=== PATIENT | female | born 1975 | race Two or more races ===

== ENCOUNTER 2019-01-16 08:00 | Inpatient (IN) | payer OTHER ==
[~2019-01-16] VITALS: Ht 167.6 cm; Wt 71.9 kg
[2019-01-16] VITALS (36 sets, daily range): BP systolic 97–135; BP diastolic 55–88; PULSE 60–90; RESP 16–18; Ht 167.6 cm; Wt 71.9 kg
[~2019-01-16 08:00] MED LIST: ACETAMINOPHEN 500 MG TAB PO ONE; CEFAZOLIN 2 GM/50 ML (PMX) 50 ML IVPB ONE; DESFLURANE 15 MIN ONE; GLYCOPYRROLATE 0.4 MG INJ ONE; LIDOCAINE 2% (SDV) 5 ML INJ ONE; SOD CHLORIDE 0.9% 1,000 ML IV ONE; SUCCINYLCHOLINE CHLORIDE 100 MG/5 ML SYG IV ONE
[2019-01-16] MEDS ORDERED: PROPOFOL 40 ML ONE (08:19)
[2019-01-16] MEDS ORDERED: CEFAZOLIN 1 GM INJ ONE (08:20)
[2019-01-16] MEDS ORDERED: FAMOTIDINE 20 MG INJ ONE (08:20)
[2019-01-16] MEDS ORDERED: MIDAZOLAM 1 MG/ML 2 ML INJ ONE (08:20)
[2019-01-16] MEDS ORDERED: FENTAnyl 50 MCG/ML VIAL ONE (08:20)
[2019-01-16] MEDS ORDERED: ONDANSETRON 4 MG INJ ONE (08:20)
[2019-01-16] MEDS ORDERED: ROCURONIUM 50 MG INJ ONE (08:20)
[2019-01-16] MEDS ORDERED: morphine (1 MG/ML) 10ML SYRINGE IV PRN ×2 (08:30)
[2019-01-16] MEDS ORDERED: HYDROmorphONE 1 MG/5 ML IV SYRINGE IV PRN ×3 (08:30)
[2019-01-16] MEDS ORDERED: ONDANSETRON 4 MG INJ IV PRN ×2 (08:30→12:00)
[2019-01-16] MEDS ORDERED: OXYCODONE/ACETAMINOPHEN (5/325) TAB PO PRN ×2 (08:30)
[2019-01-16] MEDS ORDERED: FENTAnyl 50 MCG/ML VIAL IV PRN ×2 (08:30)
[2019-01-16] MEDS ORDERED: MEPERIDINE 25 MG INJ IV PRN (08:30)
[2019-01-16] MEDS ORDERED: LABETALOL HCL 20MG INJ IV PRN (08:30)
[2019-01-16] MEDS ORDERED: ALBUTEROL 0.083% (NEB) 2.5 MG/3 ML AMP HHN PRN (08:30)
[2019-01-16] MEDS ORDERED: DIPHENHYDRAMINE 50 MG INJ IV PRN (08:30)
[2019-01-16] MEDS ORDERED: THROMBIN (BOVINE) 5,000 UNIT VIAL TP ONE (09:11)
[2019-01-16] MEDS ORDERED: SURGIFOAM POWDER 1 GM KIT ONE (09:18)
--- NOTE | 2019-01-16 09:23 | PREAC ---
Date/Time of Note Date/Time of Note DATE: 01/16/19 TIME: 09:21 Anesthesia Eval and Record Evaluation Time Pre-Procedure Interview DATE: 01/16/19 TIME: 09:21 Age 43 Sex female NPO: 8 hrs Preoperative diagnosis R thyroid nodule Planned procedure R thyroid lobectomy possible total thyroidectomy Past Medical History Past Medical History: None Surgery & Anesthesia Issues No known issue Meds Anticoagulation: No Beta Lion within 24 hr: No Reason Beta Lion not given: Pt. not on B-Lion No Active Prescriptions or Reported Meds Current Medications Sodium Chloride 1,000 ml @ 75 mls/hr [id number] ONCE IV ; Start 01/16/19 at 07:00; Stop 01/16/19 at 20:19 Morphine Sulfate (morphine (REC)) 2 mg PACU ORDER PRN IV MILD PAIN 1-3; Start 01/16/19 at 08:30; Stop 01/16/19 at 16:00 Morphine Sulfate (morphine (REC)) 4 mg PACU ORDER PRN IV MOD PAIN 4-6; Start 01/16/19 at 08:30; Stop 01/16/19 at 16:00 Hydromorphone HCl (Dilaudid) 0.2 mg PACU PRN IV MILD PAIN 1-3; Start 01/16/19 at 08:30; Stop 01/16/19 at 16:00 Hydromorphone HCl (Dilaudid) 0.4 mg PACU PRN IV MOD PAIN 4-6; Start 01/16/19 at 08:30; Stop 01/16/19 at 16:00 Hydromorphone HCl (Dilaudid) 0.6 mg PACU PRN IV SEVERE PAIN 7-10; Start 01/16/19 at 08:30; Stop 01/16/19 at 16:00 Fentanyl (Sublimaze) 25 mcg PACU ORDER PRN IV MILD PAIN 1-3; Start 01/16/19 at 08:30; Stop 01/16/19 at 16:00 Fentanyl (Sublimaze) 50 mcg PACU ORDER PRN IV MOD PAIN 4-6; Start 01/16/19 at 08:30; Stop 01/16/19 at 16:00 Oxycodone/ Acetaminophen (Percocet (5/ 325)) 1 tab PACU ORDER PRN PO .PAIN 1-5; Start 01/16/19 at 08:30; Stop 01/16/19 at 16:00 Oxycodone/ Acetaminophen (Percocet (5/ 325)) 2 tab PACU ORDER PRN PO .PAIN 6-10; Start 01/16/19 at 08:30; Stop 01/16/19 at 16:00 Ondansetron HCl (Zofran Inj) 4 mg PACU ORDER PRN IV NAUSEA/VOMITING; Start 01/16/19 at 08:30; Stop 01/16/19 at 16:00 Labetalol HCl (Labetalol) 5 mg PACU ORDER PRN IV HIGH BLOOD PRESSURE; Start 01/16/19 at 08:30 Albuterol (Proventil 0.083% (Neb)) 2.5 mg PACU ORDER PRN HHN .WHEEZING; Start 01/16/19 at 08:30; Stop 01/16/19 at 16:00 Meperidine HCl (Demerol) 25 mg PACU ORDER PRN IV .RIGORS; Start 01/16/19 at 08:30; Stop 01/16/19 at 16:00 Diphenhydramine HCl (Benadryl) 25 mg PACU ORDER PRN IV .PRURITUS; Start 01/16/19 at 08:30 Meds reviewed: Yes Allergies Coded Allergies: nickel (Verified Allergy, Unknown, RASH ITCHING, 01/16/19) Allergies Reviewed: Yes Labs/Studies Labs Reviewed: Reviewed by anesthesiologist test: Negative Pre-procedure Exam Last vitals Vital Signs Date Temp Pulse Resp B/P (MAP) Pulse Ox O2 O2 Flow FiO2 Time Delivery Rate 01/16/19 97.7 84 18 122/62 100 Room Air 09:09 (82) Airway: Adequate mouth opening, Adequate thyromental dist Mallampati: Mallampati II Teeth: Normal Lung: Normal Heart: Normal ASA Physical Status ASA physical status: 1 Emergency: None Planned Anesthetic General/MAC: ETT Pre-operative Attestations Prior to commencing anesthesia and surgery, the patient was re-evaluated, there was verification of: *The patient's identity *The results of appropriate recent lab work and preoperative vital signs *The above evaluation not changing prior to induction *Anesthetic plan, risk benefits, alternative and complications discussed with patient/family; questions answered; patient/family understands, accepts and wishes to proceed. CAYLA RED Jan 16, 2019 09:23
[2019-01-16] MEDS ORDERED: PHENYLephrine (100 MCG/ML) 10ML SYG ONE (09:56)
[2019-01-16] MEDS ORDERED: KETAMINE (50 MG/ML) 10 ML VIAL ONE (10:16)
[2019-01-16] MEDS ORDERED: DEXAMETHASONE 4 MG/ML 5 ML INJ ONE (10:43)
--- NOTE | 2019-01-16 11:29 | PAC ---
Date/Time of Note Date/Time of Note DATE: 01/16/19 TIME: 11:28 Post-Anesthesia Notes Post-Anesthesia Note Last documented vital signs Vital Signs Date Temp Pulse Resp B/P (MAP) Pulse Ox O2 O2 Flow FiO2 Time Delivery Rate 01/16/19 97.7 98 84 87 18 16 122/62 100 98 Room 09:09 112 (82) 124/ Air face 2 79 mask 6L Activity: WNL Respiratory function: WNL Cardiovascular function: WNL Mental status: Baseline Pain reasonably controlled: Yes Hydration appropriate: Yes Nausea/Vomiting absent: Yes CAYLA RED Jan 16, 2019 11:29
--- NOTE | 2019-01-16 11:35 | SIPON ---
Date/Time of Note Date/Time of Note DATE: 01/16/19 TIME: 11:34 Operative Report Preoperative Diagnosis Right thyroid nodule rule out malignancy Postoperative Diagnosis Same Operation/Procedure Performed Right thyroid lobectomy Surgeon see signature line printing bindery assistant Dr Deluca Anesthesia: general Estimated blood loss: 10 - 50 ml's Transfusion Required none Specimen Right thyroid lobe Grafts/Implants none Complications none AMANDA BUENO MD Jan 16, 2019 11:35
[2019-01-16] MEDS ORDERED: morphine 2 MG INJ IV PRN (12:00)
[2019-01-16] MEDS: D5W-0.45 NACL + KCL 20 MEQ 1,000 ML IV SCH ×2 (13:49→20:19)
--- NOTE | 2019-01-16 14:05 | OPR ---
DATE OF OPERATION: 01/16/2019 PREOPERATIVE DIAGNOSIS: Right thyroid nodule, rule out malignancy. POSTOPERATIVE DIAGNOSIS: Right thyroid nodule, rule out malignancy. OPERATION PERFORMED: Right thyroid lobectomy. ANESTHESIA: General. ANESTHESIOLOGIST: Nurse wastewater treatment plant attendant, Serena Quigley. SURGEON: Yaron Palumbo MD [employer]ES: Rashaun Reyes MD INDICATIONS FOR PROCEDURE: The patient is a 43-year-old female who was found to have a nodule in the right thyroid. Workup including core biopsy was suspicious for possible malignancy. The patient wa s counseled as to the benefit of surgery including lobectomy versus total thyroidectomy. She wished to proceed with surgery and she consented and was scheduled for surgery. DESCRIPTION OF PROCEDURE: The patient was brought to the operating theater, placed under general ane sthesia. The anterior cervical region was prepped and draped in usual sterile fashion. The neck was placed in the extended position. Planned incision was demarcated with marking pen approximately 2 c m above the clavicles bilaterally and extending approximately 4 cm to either side of midline. The in cision was carried out with 15 blade scalpel. Subcutaneous tissue was dissected with cautery. The p latysma muscles were then transected bilaterally. Subplatysmal flaps were then created first inferio rly to the level of the clavicles and sternal notch. This was accomplished with cautery and then sup eriorly to the level of the hyoid bone. The Green retractor was then placed and the median raphe w as incised longitudinally to allow exposure of the underlying strap muscles. The strap muscles on th e right side were meticulously dissected off of the thyroid gland. The thyroid gland was then mobili zed toward midline. With meticulous dissection, the inferior pole was sequentially isolated and spain sected using the LigaSure device in a similar way. The superior pole was mobilized. The parathyroid glands and recurrent laryngeal nerve were visualized and kept out of harm's way. In this fashion, t he entire lobe with the palpable nodule was mobilized all the way to the midline to where a portion o f the thyroid isthmus was also mobilized. The isthmus was then transected. Intraoperative analysis with frozen section performed by attending pathologist, Dr. Bernardino Barnett then took place. The nod ule was fully encapsulated. There was no evidence of extracapsular extension and a definite diagnosi s of malignancy could not be made. The total size of nodule was 2.5 cm. Based on this, Dr. Linwood peng de the decision not to proceed with total thyroidectomy. Specimen was then sent for permanent pathol ogic analysis. The wound was irrigated. Minimal bleeding was controlled with cautery. The medium r aphe was then reapproximated with 4-0 Vicryl sutures in interrupted fashion as was the overlying plat ysma muscles and then final skin approximation took place with 5-0 PDS sutures in subcuticular fashio n, and benzoin and Steri-Strips were applied. The patient tolerated the procedure well. The estimat ed blood loss was approximately 30 mL. There were no complications and the patient was transported i n stable condition to the recovery room. Dictated By: YARON PALUMBO MD TL/NTS Conf#: [id number] DID#: [id number] CC: RASHAUN REYES MD;*EndCC*
[2019-01-16] MEDS: ACETAMINOPHEN 1000MG/100ML IV 100 ML IVPB PRN (17:44)
[2019-01-16] MEDS ORDERED: HYDROCODONE/APAP (5/325) TAB PO PRN (19:00)
--- NOTE | 2019-01-16 20:38 | HP ---
DATE OF ADMISSION: 01/16/2019 CHIEF COMPLAINT AND HISTORY OF PRESENT ILLNESS: The patient is a 43-year-old female who was diagnose d with a right thyroid nodule workup including core biopsy suspicious for possible malignancy. The p la was seen by Dr. Palumbo as an outpatient and subsequently was brought in to hospital today and u nderwent right thyroid lobectomy. The patient had postoperative pain and is being admitted for [facility] er management. Intraoperative ____ frozen section performed by Dr. Bernardino Barnett did not reveal an y evidence of extracapsular extension and a definitive diagnosis of malignancy could not be made. Th e patient denies any chest pain or shortness of breath. No history of abdominal pain. No history of nausea, vomiting. No history of headache, dizziness, syncope. No history of focal weakness. REVIEW OF SYSTEMS: Other than postoperative pain, rest of the review of systems is unremarkable. PAST SURGICAL HISTORY: The patient is status post . ALLERGIES: Nickel. SOCIAL HISTORY: No smoking, no alcohol. FAMILY HISTORY: Positive for several members of family having hypothyroidism. PHYSICAL EXAMINATION: GENERAL: The patient is awake, alert, fairly oriented. VITAL SIGNS: Temperature 97.8, pulse 64, respirations 18, blood pressure 119/73, O2 sat 98% on 2 lit er nasal cannula. HEENT: No eye discharge or redness. Has a dressing. Conjunctivae and lids are normal. NECK: Fairly clear. CARDIOVASCULAR: S1, S2 normal. ABDOMEN: Soft and nontender. Bowel sounds present. EXTREMITIES: No leg edema. NEUROLOGIC: The patient is awake, alert with no gross focal deficit. IMPRESSION: Right thyroid nodule, status post right thyroid lobectomy, rule out malignancy. PLAN: The patient admitted on medical floor. The patient started to liquid diet, which will be adva nced as tolerated. We will use Tylenol, [place], and morphine for pain control and SCD for DVT prophyl actic. If the patient continues to do well, she will be discharged home tomorrow. Dictated By: ABBIE CLEANING/DIOR Conf#: [id number] DID#: [id number]
[2019-01-17] MEDS: D5W-0.45 NACL + KCL 20 MEQ 1,000 ML IV SCH (02:30)
--- NOTE | 2019-01-17 03:19 | PN ---
Date/Time of Note Date/Time of Note DATE: 01/17/19 TIME: 03:14 Assessment/Plan VTE Prophylaxis Risk score (from Nsg)>0 risk: 2 SCD applied (from Nsg): Yes SCD contraindicated: other Pharmacological prophylaxis: other Pharm contraindication: other Lines/Catheters IV Catheter Type (from Nrsg): Peripheral IV Assessment/Plan Assessment/Plan - status post right thyroid lobectomy, rule out malignancy. Ca -9.2 - per surgery - fu CBC; BMP - wound care - monitor fo s/s of infection - diet per surgery - IV Zofran for nausea, vomiting. - pain control with Tylenol, Phil[place] and IV morphine. - Right thyroid nodule -SCD for DVT prophylaxis Further recommendations will depend on patient's hospital course. If the patient remains stable, she will be discharged home tomorrow.Mike Tijerina /staff. Results 24hrs Laboratory Tests Test 01/16/19 17:35 01/17/19 00:39 Calcium Level 9.1 9.2 Exam/Review of Systems Exam Vitals Vital Signs Date Temp Pulse Resp B/P (MAP) Pulse Ox O2 O2 Flow FiO2 Time Delivery Rate 01/16/19 98.0 73 18 97/55 (69) 100 Room Air 23:47 01/16/19 2.0 18:00 Intake and Output 01/16/19 01/16/19 01/17/19 1515:00 23:00 07:00 IntakeIntake Total 475 ml 1105 ml BalanceBalance 475 ml 1105 ml Constitutional: alert, well developed Psych: nl mood/affect ENMT: nl external ears & nose Neck: other (sp thyroid surgery- dressing ) Respiratory: clear to auscultation Cardiovascular: nl pulses, other (s1s2) Gastrointestinal: soft, non-tender Musculoskeletal: nl extremities to inspection Extremities: normal pulses Neurological: other (responsive) Lymph: nontender Results Results 24hrs Laboratory Tests Test 01/16/19 17:35 01/17/19 00:39 Calcium Level 9.1 9.2 Medications Medication Current Medications Ondansetron HCl (Zofran Inj) 4 mg Q6H PRN IV NAUSEA AND/OR VOMITING; Start 01/16/19 at 12:00 Potassium Chloride/Dextrose/ Sod Cl 1,000 ml @ 75 mls/hr [id number] IV Last administered on 01/17/19at 02:30; Admin Dose 75 MLS/HR; Start 01/16/19 at 11:35 Morphine Sulfate (morphine) 2 mg Q1H PRN IV PAIN Last administered on 01/16/19at 13:49; Admin Dose 2 MG; Start 01/16/19 at 12:00 Acetaminophen 100 ml @ 400 mls/hr Q6H PRN IVPB PAIN Last administered on 01/16/19at 17:44; Admin Dose 400 MLS/HR; Start 01/16/19 at 12:00; Stop 01/17/19 at 11:59 Acetaminophen/ Hydrocodone Bitart ([place] (5/325)) 1 tab Q6H PRN PO MODERATE PAIN LEVEL 4-6; Start 01/16/19 at 19:00 YOLETTE DE SANTIAGO Jan 17, 2019 03:19
[2019-01-17 04:03] VITALS: BP 93/52; PULSE 85; RESP 16
[2019-01-17] MEDS: ACETAMINOPHEN 1000MG/100ML IV 100 ML IVPB PRN (06:15)
--- NOTE | 2019-01-17 14:51 | PN ---
DATE: 01/17/2019 Postop day #1 status post right thyroid lobectomy. SUBJECTIVE: No specific complaint. Has tolerated diet, has been out of bed, walked around. Pain has been under control with Tylenol. GENERAL: Awake, alert, oriented. VITAL SIGNS: Temperature 98.8, heart rate 85, respirations 16, blood pressure 93/52, saturation 100% room air. Dressing is intact. It was removed. Wound is clean and clear. Dressing reapplied. LUNGS: Clear. HEART: Regular. ABDOMEN: Soft. LABORATORY DATA: There are no labs done today. ASSESSMENT AND PLAN: A 43-year-old female who underwent right thyroid lobectomy for suspicious nodule right side . Patient's condition is stable. Voice is normal. No fever, no nausea, no vomiting. Wound is clean. The patient can be discharged home to be followed by Dr. Palumbo in the office. The patient to call Dr. Palumbo' office and make an appointment for next week. Dictated By: DENIS GALINDO/DIOR Conf#: [id number] DID#: [id number] [id number]
[2019-01-17 15:52] VITALS: BP 111/62; PULSE 72; RESP 19
[2019-01-17] MEDS ORDERED: ACETAMINOPHEN 500 MG TAB PO STA (17:26)
[2019-01-17] MEDS ORDERED: ACETAMINOPHEN 500 MG TAB PO ONE (17:30)
== END 2019-01-17 18:11 | disposition home or self-care (01) | DRG 627 ==
LOC: SDS 08:00 → REC 12:15 → MS1 13:22
PROVIDERS: ADMIT Surgery Surgical Oncology; ATTEND Surgery Surgical Oncology
PROC: 0GBH0ZZ Excision of Right Thyroid Gland Lobe, Open Approach (ICD-10-PCS; principal; 2019-01-16 09:00)
DX: C73 Malignant neoplasm of thyroid gland (principal)
CPT/HCPCS: 82310; 84703; 88307; 88321; 88331; J0131; J0690; J1100; J2250; J2270; J2370; J2405; J3010; J3480